=== PATIENT | male | born 1930 | race Caucasian/White ===

== ENCOUNTER 2017-01-21 17:34 | Inpatient (IN) | payer OTHER, MEDICARE, BC ==
[~2017-01-21] VITALS: Ht 177.8 cm; Wt 68.1 kg
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
[2017-01-21] MEDS ORDERED: PROVENTIL OR V6.7 GM INH (21:12)
[2017-01-21] MEDS ORDERED: ADVAIR 250-501 EACH INH (21:12)
[2017-01-21] MEDS ORDERED: DUONEB INH (21:13)
[2017-01-21] MEDS ORDERED: NEXIUM40 MG PO (21:13)
[2017-01-21] MEDS ORDERED: AMBIEN10 MG PO (21:13)
[2017-01-21] MEDS ORDERED: NORVASC5 MG PO (21:14)
[2017-01-21] MEDS ORDERED: TOPROL XL 5050 MG PO (21:14)
[2017-01-21] MEDS ORDERED: SPIRIVA HANDIHA1 KIT INH (21:14)
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
[2017-01-22 07:09] LABS: BASOPHIL # 0.1 K/uL (0.0-0.2); BASOPHIL % 0.6 %; EOSINOPHIL # 0.1 K/uL (0.0-0.5); EOSINOPHIL % 0.8 %; HEMATOCRIT 42.9 % (33.0-50.0); HEMOGLOBIN 14.5 g/dL (11.0-16.0); IMMATURE GRANULOCYTE % 0.2 %; LYMPHOCYTE # 0.9 K/uL (0.8-4.0); LYMPHOCYTE % 9.8 %; MCH 32.1 pg (27.0-34.0); MCHC 33.8 gm/dL (32.0-36.5); MCV 94.9 fl (83.0-98.0); MONOCYTE % 11.2 %; MPV 9.4 fl (9.4-12.4); NEUTROPHIL % 77.4 %; NRBC % 0 /100WBC (0-0.00); PLATELET COUNT 203 K/uL (150-450); RBC 4.52 M/uL (3.50-5.50); RDW-CV 12.8 % (11.9-14.6)
[2017-01-22 07:24] LABS: ALBUMIN 3.4 gm/dL (3.5-5.0); BLOOD UREA NITROGEN 11 mg/dL (6-24); CALCIUM 8.4 mg/dL (8.5-10.5); CHLORIDE 107 mMol/L (96-110); CO2 27 mMol/L (22-32); CREATININE 0.9 mg/dL (0.6-1.3); ESTIMATED GFR (MDRD EQUATION) > 60; PHOSPHORUS 3.5 mg/dL (2.5-4.9); SODIUM 143 mMol/L (135-145)
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
--- NOTE | 2017-01-23 18:37 | NUR ---
Significant Event:Patient is alert and oriented times three. PERRLA. CSM intact. Denies numbness or tingling. Moves extremities spontaneously and on command. Lungs diminished in the Left lower base, clear and diminished in all other lobes. VSS on 1-2L of oxygen. Pulmonary toiletry, Incentive spirometry, ambulated times three in the thompson with 1 assist, gaitbelt and walker. Bowel sounds active, Colace and MOM given today. Voiding without difficult. Edema noted to left lower extremity. [place] given for pain today. Patient takes medications whole without difficulty. Peripheral IV to right wrist is saline locked. Follow up:
--- NOTE | 2017-01-24 02:42 | NUR ---
Significant Event:Patient alert and ox3. Up with 1 assist/gb/walker. C/o pain to left ribs with norco given x2 and motrin x1, last at 0239 and 0018 respectivly. Did have mod bm this shift, after ducolax supp given and some mag cit. Lungs are clear and dim. Some edema to lower extremeties, more so to left than right. Some HTN with SBP up to 190's with pain, but came down once patient was more comfortable to 140/150's. On 1L nc with sats 88-92%. IS encouraged often. Follow up:Monitor for pain. Continue IS.
--- NOTE | 2017-01-24 16:40 | NUR ---
Significant Event: Patient is A&O x3 but is forgetful at times. Follows commands. Equal strength in all extrextremities but has generalized weakness. Denies numbness & tingling. VSS but was hypertensive this morning. Gave PO BP meds and has done better the rest of the day. Is on 1L O2 by NC & unable to wean. Push IS and daughter helps with that. Complained of pain to his L) side and gave him 1 [place] @ 0740 with relief noted. Patient refused all other pain meds today. Up with 1 assist, gait belt, & walker - with oxygen. IV to R) FA SL & is a little tender. Had XL BM today after poop meds given. Cooperative with cares. Follow up: Monitor respiratory, pulmonary toileting.
--- NOTE | 2017-01-25 04:40 | NUR ---
Significant Event: Patient A/Ox3. Denies numbness and tingling. Moves all extremties spontaneously and to command. Up 1 assist gait belt and walker. COCOPAH. Afebrile. SBPs in 160s. Labetolol given x1. HR in the 70s-90s. Lungs clear and diminished on room air. COmplains of little pain - 1 tab of norco given at 2300. IV to right forearm saline locked. Regular diet. 2 Bms this shift. Follow up:
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
--- NOTE | 2017-01-25 17:58 | NUR ---
Significant Event:Patient is alert and oriented times three, forgetful at times. PERRLA. CSM intact. Denies numbness or tingling. Equal strength noted throughout. Moves extremities spontaneously and on command. VSS on 1L to 2L. Telemetry dc'd today. Bowel sounds active, no bm this shift. Patient voids per the bathroom with 1 assist, gaitbelt, and walker with oxygen. Patient ambulates in the hallway without difficulty. Bilateral calf pumps. [place] for pain. Peripheral IV to right wrist is saline locked. Patient tolerates a regular diet. Oxygen for transport will be needed, Ange from [facility] is working on this. Follow up:Discharge to [facility] tomorrow morning.
--- NOTE | 2017-01-26 05:08 | NUR ---
Significant Event: Patient is alert and oriented x 3, forgetful and impulsive at times. Moves spontaneously and follows commands. Equal strength throughout. Denies numbness or tingling. Does c/o pain to left ribs, especially with movement of left arm. PERRL. VSS. HTN. Afebrile. On 2L O2 via NC. Bowel sounds active. No BM this shift. SBA, gait belt, walker. Bilateral SCDs. Generalized bruising. PIV to right wirst SL with no complications. 2 [place] given for pain at bedtme as well as Ambien given. Regular diet with food appetite. Follow up: pain management, SWB today in [place],
--- NOTE | 2017-01-26 11:00 | NUR ---
Significant Event: PT ALERT AND ORIENTED X3; FORGETFUL. PERRLA. DENIES ANY NUMBNESS/TINGLING. EQUAL STRENGTH X4. TRANSFERS WITH STAND-BY ASSIST/GAIT BELT/WALKER. PRN MOTRIN GIVEN AT 0738 FOR L)RIB PAIN, WITH RELIEF. HAS BEEN UP IN THE CHAIR SINCE BREAKFAST. POOR APPETITE; REGULAR DIET. TAKES MEDICATIONS WHOLE WITH WATER. 1+[place] TO LOWER EXTREMITIES. TRANSFERRING TO SHOCK SWINGBED THIS MORNING PER PRIVATE AUTO. TRANSFER PACKET WILL BE SENT WITH PT. REPORT WILL BE CALLED AND GIVEN TO RECEIVING NURSE.
== END 2017-01-26 11:18 | disposition swing bed (61) | DRG 184 ==
LOC: GACC 17:34 → GNTU 19:03
PROVIDERS: ADMIT Surgery
PROC: 3E0F7GC Introduction of Other Therapeutic Substance into Respiratory Tract, Via Natural or Artificial Opening (ICD-10-PCS; principal; 2017-01-21)
DX: S22.42XA Multiple fractures of ribs, left side, initial encounter for closed fracture (principal); J96.10 Chronic respiratory failure, unspecified whether with hypoxia or hypercapnia; Z99.81 Dependence on supplemental oxygen; J44.9 Chronic obstructive pulmonary disease, unspecified; I10 Essential (primary) hypertension; K21.9 Gastro-esophageal reflux disease without esophagitis; K57.90 Diverticulosis of intestine, part unspecified, without perforation or abscess without bleeding; V89.2XXA Person injured in unspecified motor-vehicle accident, traffic, initial encounter; Y92.410 Unspecified street and highway as the place of occurrence of the external cause
CPT/HCPCS: J1650; J3010